=== PATIENT | male | born 1965 | race Caucasian/White ===

== ENCOUNTER 2017-10-25 15:12 | Emergency (ER) | payer BC ==
[2017-10-25] MEDS ORDERED: Ketorolac INJ* 60 MG/2 ML VIAL IM ONE (15:37)
--- NOTE | 2017-10-25 16:53 | RAD ---
CLINICAL HISTORY: Right flank pain with nausea and vomiting COMPARISON: None TECHNIQUE: Noncontrast CT examination of the abdomen and pelvis from the lung bases through the initial tuberosities. FINDINGS: VISUALIZED LUNG BASES: The visualized lung bases are grossly clear. There is no pleural effusion. ABDOMEN AND PELVIS: Evaluation of the solid organs and vasculature is limited without intravenous contrast. In the left lobe of the liver there is a fluid density 3.6 cm cyst. The liver is otherwise homogenously hypodense relative to the spleen. The normal attenuation spleen is top normal measuring 12.2 cm in greatest axial dimension. The pancreas and adrenal glands are grossly normal in appearance. The gallbladder is normal. The left kidney is normal in appearance without focal mass, calcification or signs of hydronephrosis. There is a punctate calcification at the mid-level collecting system of the right kidney (image 97). There is a mild degree of right-sided hydronephrosis. The distal right ureter there is a 3 mm calcification (axial image 206 and coronal image 98). No calcifications are seen in the left ureter or the urinary bladder. The urinary bladder is mostly decompressed. The small and large bowel are not distended.The patient's normal appendix is identified in the right lower quadrant measuring 5 mm in diameter (axial image 146. There is no gross retroperitoneal or mesenteric lymphadenopathy. The pelvic viscera is normal in appearance. The abdominal aorta and iliac arteries are normal in course and diameter. Degenerative changes include multilevel loss of intervertebral disc height involving the lower thoracic and lumbar spine.There are no sinister bone lesions. IMPRESSION: 1. 3 mm calcification in the distal right ureter with mild ipsilateral hydronephrosis. 2. Homogenous hypoattenuation of the liver could be seen in the setting of hepatic steatosis or other chronic infiltrative disease. 3. The spleen is slightly enlarged measuring 12.2 cm in greatest axial dimension.
--- NOTE | 2017-10-25 17:45 | UC ---
Migel Be Gabriel, scribed for Dee Goldberg MD on 10/25/17 at 1538 . Back Pain HPI - HPI Summary HPI Summary: This patient is a 52 year old M presenting to [facility] accompanied by his with a chief complaint of right sided flank pain that began an hour ago. While the patient was being triaged he began vomiting secondary to pain. The patient rates the pain 10/10 in severity. Patient reports RLQ pain, nausea, increased urinary frequency and urgency Patient denies SOB, trauma, and CP. Pts last BM was this morning. Additionally he had a physical last week where his BP was found to be elevated - History of Current Complaint Chief Complaint: UCBackPain Stated Complaint: BACK PAIN Time Seen by Provider: 10/25/17 15:36 Hx Obtained From: Patient Onset/Duration: Still Present Timing: Constant Severity Initially: Severe Severity Currently: Severe Pain Intensity: 10 Pain Scale Used: 0-10 Numeric Back Pain: Is Discrete @ - at right flank Associated Signs And Symptoms: Positive: Abdominal Pain - rlq, Other - nausea, increased urinary frequency and urgency - Allergies/Home Medications Allergies/Adverse Reactions: Allergies Allergy/AdvReac Type Severity Reaction Status Date / Time No Known Allergies Allergy Verified 09/17/15 14:44 Home Medications: Home Medications Fluconazole 100 MG TAB* [Diflucan 100 MG TAB*] 100 mg PO DAILY 10/25/17 [ History Confirmed 10/25/17] PMH/Surg Hx/FS Hx/Imm Hx Previously Healthy: Yes - BP was 140 systolic at recent physical - Surgical History Surgical History: Yes Surgery Procedure, Year, and Place: wisdom teeth extraction - Family History Known Family History: Positive: Other - kidney stones Negative: Cardiac Disease, Diabetes, Renal Disease, Respiratory Disease, Seizure Disorder Family History: NON CONTRIBUTORY - Social History Occupation: Employed Full-time Lives: With Family Alcohol Use: Rare Substance Use Type: None Smoking Status (MU): Never Smoked Tobacco Review of Systems Gastrointestinal: Abdominal Pain - RLQ, Vomiting, Nausea Genitourinary: Frequency, Urgency Musculoskeletal: Other: - right flank pain All Other Systems Reviewed And Are Negative: Yes Physical Exam Triage Information Reviewed: Yes Appearance: Well-Appearing, Pain Distress - Initially arrived wretching and vomiting, improved following toradol injection. Vital Signs: Initial Vital Signs Temp 97.5 F 03/29/18 15:24 Resp 22 10/25/17 15:24 Vital Signs Reviewed: Yes Eyes: Positive: Conjunctiva Clear ENT: Positive: Pharynx normal Neck: Positive: Supple, Nontender, No Lymphadenopathy Respiratory: Positive: Lungs clear, Normal breath sounds Cardiovascular: Positive: RRR, No Murmur Abdomen Description: Positive: Soft, CVA Tenderness (R), Splenomegaly - Blanche's space resonant(reported mild enlargement on CT), Other: - Tender in RLQ without guarding or rebound. Negative: CVA Tenderness (L) Bowel Sounds: Positive: Present Musculoskeletal Exam: Normal Musculoskeletal: Positive: Strength Intact, ROM Intact Neurological: Positive: Alert, Muscle Tone Normal Skin Exam: Other - healing wound right cheek 5 mm post biopsy Diagnostics - Laboratory Diagnostic Studies Completed/Ordered: CT shows 3 mm stone distal ureter with mild right hydronephrosis - Radiology CT ABD/Pelvis Radiology Interpretation Completed By: Radiologist - 1. 3 mm calcification in the distal right ureter with mild ipsilateral hydronephrosis. 2. Homogenous hypoattenuation of the liver could be seen in the setting of hepatic steatosis or other chronic infiltrative disease. 3. The spleen is slightly enlarged measuring 12.2 cm in greatest axial dimension. Dr. Goldberg has reviewed this report Back Pain Course/Dx - Course Course Of Treatment: Pt medications reviewed this visit. Elevated blood pressure noted and pt was encouraged to follow up with PCP for control. Pain control, increase fluids, and follow up with urology. - Differential Dx/Diagnosis Differential Diagnosis/HQI/PQRI: Renal Colic, Strain Provider Diagnoses: Elevated blood pressure without a previous diagnoses of hypertension. renal colic with mild right hydronephrosis. Coincidental mild splenomegaly NYD Discharge - Sign-Out/Discharge Documenting (check all that apply): Discharge - Discharge Plan Condition: Stable Disposition: HOME Prescriptions: Hydrocodone/Acetaminophen [Hydrocodone-Acetamin 5-325 mg] 1 each PO Q6HR PRN # 20 tablet MDD 8 PRN Reason: Pain Tamsulosin CAP* [Flomax CAP*] 0.4 mg PO BEDTIME #30 cap Patient Education Materials: Renal Colic (ED) Referrals: Tunde Molina MD [Primary Care Provider] - Yunior Lee MD [Medical Doctor] - Additional Instructions: If you have uncontrollable pain overnight, or have recurrent vomiting, please return to the emergency room. Follow up with urology tomorrow. Begin use of Flomax tonight to promote passage of stone, Use hydrocodone for relief of pain, and you can use ibuprofen in addition ( 600mg every 6 hours, but the first dose should not be taken until 8 pm because of the ketorolac you have been given. - Billing Disposition and Condition Condition: STABLE Disposition: HOME The documentation as recorded by the Migel wright Gabriel accurately reflects the service I personally performed and the decisions made by me, Dee Goldberg MD.
[2017-10-25] MEDS ORDERED: HYDROcodone/ACETAMIN 5-325 MG* 1 TAB PO ONE (18:23)
[2017-10-25 18:24] VITALS: BP 155/76
== END 2017-10-25 18:30 | disposition home or self-care (01) ==
LOC: UCEAST 15:12
DX: N13.2 Hydronephrosis with renal and ureteral calculous obstruction (principal); R16.1 Splenomegaly, not elsewhere classified
CPT/HCPCS: 74176; 81003; 96372; 99212; G0463; J1885